=== PATIENT | male | born 1970 | race Caucasian/White ===

== ENCOUNTER 2020-10-29 13:52 | Outpatient (CLI) | payer OTHER | END 2020-10-29 13:53 | disposition home or self-care (01) | LOC: PPH VACUNA 13:52 | DX: Z23 Encounter for immunization (principal) ==

== ENCOUNTER 2021-09-03 08:00 | Outpatient (CLI) | payer OTHER | END 2021-09-03 08:30 | disposition home or self-care (01) | LOC: PPH VACUNA 08:00 | PROVIDERS: ATTEND Emergency Medicine Pediatric Emergency Medicine | DX: Z23 Encounter for immunization (principal) ==

== ENCOUNTER 2022-02-24 08:00 | Outpatient (CLI) | payer OTHER | END 2022-02-24 08:30 | disposition home or self-care (01) | LOC: PPH VACUNA 08:00 | PROVIDERS: ATTEND Emergency Medicine Pediatric Emergency Medicine | DX: Z23 Encounter for immunization (principal) ==

== ENCOUNTER 2022-11-10 08:53 | Outpatient (CLI) | payer OTHER | END 2022-11-10 09:03 | disposition home or self-care (01) | LOC: PPH VACUNA 08:53 | PROVIDERS: ATTEND Emergency Medicine Pediatric Emergency Medicine | DX: Z23 Encounter for immunization (principal) ==